=== PATIENT | male | born 1990 | race Two or more races ===

== ENCOUNTER 2024-10-19 14:53 | Emergency (ER) | payer SELFPAY ==
[2024-10-19 14:54] VITALS: BMI 32.5
[2024-10-19 15:35] VITALS: BP 129/80; PULSE 53; RESP 16; TEMP 36.7; O2SAT 95; BMI 32.2
--- NOTE | 2024-10-19 15:46 | XR_ITS ---
Examination: AP lateral soft tissue neck 2 views Technique one AP lateral soft tissue neck 2 views Exam date and time: October 19, 2024 1553 hours INDICATIONS: Patient swallowed foreign body today FINDINGS: Normal epiglottis No opaque foreign body depicted IMPRESSION: No opaque foreign body depicted If symptoms persist, consider CT soft tissue neck without contrast follow-up
--- NOTE | 2024-10-19 16:29 | PD.EDADULT ---
ED General RME/HPI General Chief complaint: General Adult/Misc Complain Stated complaint: PIECE OF METAL STUCK IN THROAT Time Seen by Provider: 10/19/24 15:39 Source: patient Arrival date/time: 10/19/24 14:53 Limitations: no limitations RME / HPI RME / HPI narrative: 34-year-old male presents to the ED with complaint of a foreign body sensation in his throat. He believes it to be a piece of metal. Onset (ago): hour(s) Location: mouth Related Data Allergies Allergy/AdvReac Type Severity Reaction Status Date / Time No Known Allergies Allergy Verified 10/19/24 14:57 Review of Systems Review of Systems Systems Reviewed: All systems reviewed, normal except as documented ED Exam General Limitations: Present no limitations General appearance: Present alert and in no apparent distress Head Head exam: Present atraumatic and normocephalic ENT ENT exam: Present normal exam, normal oropharynx and mucous membranes moist Neck Neck exam: Present normal inspection, full ROM and trachea midline; Absent tenderness or lymphadenopathy Chest Chest inspection: Present normal inspection Respiratory Respiratory exam: Present normal lung sounds bilaterally; Absent respiratory distress or stridor Cardiovascular Cardiovascular exam: Present regular rate, normal rhythm and normal heart sounds Abdominal Exam Abdominal exam: Absent distention Extremities Exam Extremities exam: Present normal inspection and full ROM Back Exam Back exam: Present normal inspection Neurological Exam Neurological exam: Present alert and oriented X3 Psychiatric Psychiatric exam: Present normal affect and normal mood Skin Skin exam: Present warm, dry and normal color Course Course Course Narrative: 34-year-old male presents to the ED with complaint of a foreign body sensation in his throat. He believes it to be a piece of metal. Physical Exam is normal. Oropharynx without injury or erythema. Mucous membranes are moist. Neck is supple, no adenopathy. No stridor is noted. Lungs are clear, regular rate and rhythm without murmurs. Abdomen is nondistended. Alert and oriented with normal mood and affect. X-rays, soft tissue neck and chest were ordered. X-rays revealed no radiopaque foreign body noted in throat, neck, or chest. Quality Measures none Orders Category Date Time Status XR chest 1V Stat Exams 10/19/24 16:30 Completed XR soft tissue neck Stat Exams 10/19/24 15:46 Completed Vital Signs Vital signs: Vital Signs Temperature 98.1 F 10/19/24 15:35 Pulse Rate 53 L 10/19/24 15:35 Respiratory Rate 16 10/19/24 15:35 Blood Pressure 129/80 10/19/24 15:35 Pulse Oximetry (%) 95 10/19/24 15:35 Oxygen Delivery Method Room Air 10/19/24 15:35 Discharge Plan Plan Patient Disposition: HOME (Self Care) Discharge Disposition comment: Stable Prescriptions/Referrals Referrals: No Primary/Family,Physician [Primary Care Provider] - In 1 week Problem List Clinical Impression: Foreign body sensation in throat Patient/Caregiver Discharge Instructions Education Materials: ED Swallowed Foreign Body (Adult) Additional Instructions: Follow-up with your primary care physician in 24 to 48 hours. Return to the ED for any new or worsening symptoms. Do not remove tabs from cans. Print Language: Occitan Stand Alone Forms: Krystin Award Info., Work/School Release, Patient Portal Info Letter PA/BUSINESS ANALYSIS SPECIALIST Supervising Physician PA/BUSINESS ANALYSIS SPECIALIST Supervising Physician: Dr. Campbell
--- NOTE | 2024-10-19 16:30 | XR_ITS ---
Examination: PA chest single view TECHNIQUE: Upright PA chest single view Exam date and time: October 19, 2024 1613 hours INDICATIONS: Patient swallowed a piece of metal 2 hours ago FINDINGS: Normal heart size. No aspiration pneumonia. No opaque foreign body depicted Osseous structures intact IMPRESSION: No opaque foreign body depicted
== END 2024-10-19 18:40 | disposition home or self-care (01) ==
PROVIDERS: Emergency Provider Family Medicine
DX: R09.A2 Foreign body sensation, throat (principal)
CPT/HCPCS: 70360; 71045; 99283

== ENCOUNTER → 2025-04-10 | Outpatient (CLI) | payer BC, SELFPAY ==
--- NOTE | 2025-04-10 15:00 | XR_ITS ---
Examination: MRI cervical spine without intravenous contrast Date and time of exam: April 10, 2025 1535 hours, comparison 04/06/2008 INDICATIONS: Work injury to the neck 6 months ago with persistent neck pain Technique: Multiple axial and sagittal sections of the cervical spine to been obtained. T2 weighted sagittal sections, TR 3, 270, TE 117 T1-weighted sagittal sections, TR 500, TE 11 T1-weighted axial sections, TR 607, TE 12, axial sections TR 18, TE 27 and T2 weighted transverse sections, TR 3920, TE 122. Findings: Adequate alignment cervical vertebral bodies on the lateral view No cervical fracture. Intact odontoid Prominent osteophytes anteriorly C4-C5 No localized enlargement cervical cord C2-C3 no disc protrusion C3-C4 moderate right neural foraminal stenosis C4-C5 moderate bilateral neural foraminal stenosis C5-C6 advanced bilateral neural foraminal stenosis C6-C7 advanced bilateral neural foraminal stenosis C7-T1 no disc protrusion IMPRESSION: No cervical fracture C3-C4 moderate right neural foraminal stenosis C4-C5 moderate bilateral neural foraminal stenosis C5-C6, C6-C7 advanced bilateral neural foraminal stenosis
== END | disposition home or self-care (01) ==
LOC: SMRI 14:27
PROVIDERS: PCP Family Medicine; Referring Provider Family Medicine; Visit Provider Family Medicine
DX: M48.02 Spinal stenosis, cervical region (principal)
CPT/HCPCS: 72141